=== PATIENT | female | born 1995 | race African-American/Black ===

== ENCOUNTER 2019-05-18 19:18 | Emergency (ER) | payer MEDICAID ==
[~2019-05-18] VITALS: Ht 162.6 cm; Wt 63.0 kg
[2019-05-18] MEDS ORDERED: LORAZEPAM 0.5MG TABLET PO ONE (19:45)
[2019-05-18 20:10] LABS: BASOPHILS % 0.5 % (0.0-2.0); HEMATOCRIT. 36.4 % (36.0-48.0); HEMOGLOBIN. 12.2 g/dL (12.0-16.0); LYMPHOCYTES % 36.1 % (20.0-50.0); MEAN CORPUSCULAR HEMOGLOBIN 28.8 pg (28.0-32.0); MEAN PLATELET VOLUME 7.3 fl (7.4-10.4); MONOCYTES % 8.2 % (2.0-8.0); NEUTROPHILS % 53.2 % (40.0-76.0); PLATELET 262 x1000/uL (130-400); RED BLOOD CELL COUNT 4.24 mill/uL (4.2-5.4); RED CELL DISTRIBUTION WIDTH 13.9 % (11.6-14.6)
[2019-05-18 20:14] LABS: CHLORIDE 111 mEq/L (98-107)
[2019-05-18 20:18] LABS: ETHANOL BLOOD < 10 mg/dL
[2019-05-18 21:00] VITALS: BP 98/61
== END 2019-05-18 23:00 | disposition home or self-care (01) ==
LOC: ER 19:18
DX: G40.909 Epilepsy, unspecified, not intractable, without status epilepticus (principal)
CPT/HCPCS: 36415; 80320; 81025; 99284; G0480